=== PATIENT | female | born 1985 | race Two or more races ===

== ENCOUNTER → 2025-04-12 | Outpatient (BNVA) | payer BC, MEDICAID, SELFPAY | END | disposition home or self-care (01) | PROVIDERS: PCP Nurse Practitioner Family; Referring Provider Nurse Practitioner Family; Visit Provider Nurse Practitioner Family | DX: M54.41 Lumbago with sciatica, right side (principal); R03.0 Elevated blood-pressure reading, without diagnosis of hypertension; Z28.21 Immunization not carried out because of patient refusal | CPT/HCPCS: 96372; 99215; J1885 ==

== ENCOUNTER → 2025-04-15 | Outpatient (CLI) | payer BC, MEDICAID, SELFPAY ==
--- NOTE | 2025-04-15 14:29 | XR_ITS ---
EXAMINATION: Lumbar spine 3 views TECHNIQUE: AP lateral: Lateral and lower lumbar spine 3 views Date and time: April 15, 2025, 1445 hours INDICATIONS: Low back pain beginning 2004 FINDINGS: Lumbar levoscoliosis 12 degrees No lumbar fracture or significant lumbar disc narrowing Intact pedicles IMPRESSION: No lumbar fracture or lumbar disc narrowing
== END | disposition home or self-care (01) ==
LOC: CDIM 14:04
PROVIDERS: PCP Nurse Practitioner Family; Referring Provider Nurse Practitioner Family; Visit Provider Nurse Practitioner Family
DX: M54.50 Low back pain, unspecified (principal)
CPT/HCPCS: 72100

== ENCOUNTER → 2025-04-19 | Outpatient (BNVA) | payer BC, MEDICAID, SELFPAY | END | disposition home or self-care (01) | PROVIDERS: PCP Nurse Practitioner Family; Referring Provider Nurse Practitioner Family; Visit Provider Nurse Practitioner Family | DX: Z71.2 Person consulting for explanation of examination or test findings (principal); I10 Essential (primary) hypertension; M54.41 Lumbago with sciatica, right side; M41.87 Other forms of scoliosis, lumbosacral region; Z28.21 Immunization not carried out because of patient refusal | CPT/HCPCS: 99214 ==

== ENCOUNTER → 2025-05-03 | Outpatient (BNVA) | payer BC, MEDICAID, SELFPAY | END | disposition home or self-care (01) | PROVIDERS: PCP Nurse Practitioner Family; Referring Provider Nurse Practitioner Family; Visit Provider Nurse Practitioner Family | DX: I10 Essential (primary) hypertension (principal); Z28.21 Immunization not carried out because of patient refusal | CPT/HCPCS: 99212; 99213 ==

== ENCOUNTER 2025-05-17 03:41 | Emergency (ER) | payer BC, MEDICAID, SELFPAY ==
[2025-05-17 03:42] VITALS: BMI 39.7
[2025-05-17 04:33] VITALS: BP 136/90; PULSE 89; RESP 20; TEMP 37.1; O2SAT 100
--- NOTE | 2025-05-17 05:17 | PD.EDRME ---
Rapid Medical Screening Exam RME Arrival date/time: 05/17/25 03:41 39F with history of HTN presents to ED with worsening R-hip/back pain that radiates down RLE w/o fall/trauma. Chief Complaint: Extremity Problem,Nontraumatic Vital signs: Vital Signs Temperature 98.7 F 05/17/25 04:33 Pulse Rate 89 05/17/25 04:33 Respiratory Rate 20 05/17/25 04:33 Blood Pressure 136/90 H 05/17/25 04:33 Pulse Oximetry (%) 100 05/17/25 04:33 Oxygen Delivery Method Room Air 05/17/25 04:33 Exam: Unremarkable. Gait intact. Clinical Impression: DVT vs sciatica vs gout vs joint pain
--- NOTE | 2025-05-17 05:21 | XR_ITS ---
Examination: Duplex scan of the lower extremity, unilateral right Date and time of exam: May 09, 2025, 0720 hours INDICATION: Right hip and leg pain beginning 2 days ago Technique: Duplex scan of the extremity veins using B-mode/grayscale imaging and Doppler spectral analysis and color flow Attention is directed to internal echogenicity, compression and augmentation involving these veins, color flow assessment, spectral analysis Findings: Major deep venous structures in the extremity demonstrate normal course and caliber. There is no evidence of deep vein thrombosis. Normal color flow and spectral analysis Impression: Negative for DVT..
[2025-05-17] MEDS: DIAZEPAM 5 MG TABLET PO (05:49)
[2025-05-17] MEDS: KETOROLAC INJ 60 MG/2 ML VIAL IM (05:50)
--- NOTE | 2025-05-24 07:07 | PD.EDLOWEX ---
Lower Extremity Injury RME/HPI General Chief Complaint: Extremity Problem,Nontraumatic Stated Complaint: RIGHT HIP PAIN SINCE YESTERDAY Time Seen by Provider: 05/17/25 06:11 Source: patient Arrival date/time: 05/17/25 03:41 39-year-old female with a history of hypertension presents to the emergency room with a chief complaint of right sided hip pain x 2 days Mode of arrival: ambulatory Limitations: no limitations RME / HPI RME / HPI Narrative: 05/17/25 03:41 39F with history of HTN presents to ED with worsening R-hip/back pain that radiates down RLE w/o fall/trauma. Exam: Unremarkable. Gait intact. Impression: DVT vs sciatica vs gout vs joint pain Related Data Previous Rx's ?Medication ?Instructions ?Recorded ibuprofen 800 mg tablet 800 mg PO Q8H #30 tabs 05/17/25 losartan 50 mg tablet 50 mg PO QDAY #90 tabs 05/20/25 Allergies Allergy/AdvReac Type Severity Reaction Status Date / Time No Known Allergies Allergy Verified 05/20/25 14:08 Review of Systems Review of Systems Systems Reviewed: All systems reviewed, normal except as documented Constitutional Constitutional: Reports system reviewed and no additional complaints, except as documented, Denies fatigue, Denies fever(s), Denies headache(s) and Denies weakness Eyes Eyes: Reports system reviewed and no additional complaints, except as documented, Denies blurry vision and Denies change in vision ENT Ears, Nose, Mouth, and Throat: Reports system reviewed and no additional complaints, except as documented, Denies otalgia, Denies headache(s), Denies nasal congestion, Denies throat swelling and Denies vertigo Cardiovascular Cardiovascular: Reports system reviewed and no additional complaints, except as documented, Denies chest pain, Denies dyspnea and Denies dyspnea on exertion Respiratory Respiratory: Reports system reviewed and no additional complaints, except as documented, Denies chest congestion, Denies cough, Denies dyspnea, Denies dyspnea on exertion and Denies wheezing Gastrointestinal Gastrointestinal: Reports system reviewed and no additional complaints, except as documented, Denies abdominal pain, Denies cramping, Denies nausea and Denies vomiting Genitourinary Genitourinary: Reports system reviewed and no additional complaints, except as documented Musculoskeletal Musculoskeletal: Reports system reviewed and no additional complaints, except as documented, Reports arthralgias and Denies back pain Integumentary/Breasts Skin/Breast: Reports system reviewed and no additional complaints, except as documented and Denies wounds Neurologic Neurologic: Reports system reviewed and no additional complaints, except as documented, Denies confusion, Denies headache(s), Denies lack of coordination, Denies vertigo and Denies weakness Psychiatric Psychiatric: Reports system reviewed and no additional complaints, except as documented, Denies anxiety, Denies confusion, Denies depression, Denies paranoia, Denies suicidal ideation and Denies tactile hallucinations Endocrine Endocrine: Reports system reviewed and no additional complaints, except as documented and Denies fatigue Hematologic/Lymphatic Hematologic/Lymphatic: Reports system reviewed and no additional complaints, except as documented and Denies lymphadenopathy Allergic/Immunologic Allergic/Immunologic: Reports system reviewed and no additional complaints, except as documented, Denies throat swelling, Denies urticaria and Denies wheezing Past Medical History Past Medical History NEUROLOGIC: Negative Neurological Disorders or Seizures CARDIAC: Positive Cardiac Disorders and Hypertension (pt chooses not to take med); Negative Congestive Heart Failure RESPIRATORY: Positive Bronchitis; Negative Chronic Obstructive Pulmonary Disease (COPD) or Asthma GASTROINTESTINAL: Positive Gastrointestinal Disorders and Obesity; Negative Hepatitis GENITOURINARY: Negative Genitourinary Disorders or Renal Disease REPRODUCTIVE: Positive Previous Pregnancies MUSCULOSKELETAL: Positive Musculoskeletal Disorders ENDOCRINE: Negative Endocrine Disorders, Diabetes Mellitus Type 1 or Diabetes Mellitus Type 2 HEMATOLOGIC: Positive Blood Disorders and Anemia; Negative Sickle Cell Disease PSYCHO/SOCIAL: Positive Depression (no meds) and Anxiety OTHER HISTORY: Negative Hospitalization, Autoimmune Disease, Shingles, Blood Transfusions, Blood Transfusion Reaction, Anesthesia Reactions or Cancer Family History FAMILY HISTORY: Positive Family Cardiac Disorders, Family Cancer and Family Surgery; Negative Family Psychiatric Problems, Family Respiratory Disorders, Family Gastrointestinal Problems or Family Anesthesia Reaction Social History SMOKING STATUS: Never smoker ED Exam General Limitations: Present no limitations General appearance: Present alert and in no apparent distress Head Head exam: Present atraumatic Eye Eye exam: Present normal appearance, PERRL and EOMI ENT ENT exam: Present normal exam, normal oropharynx and mucous membranes moist Neck Neck exam: Present normal inspection, full ROM and trachea midline Chest Chest inspection: Present normal inspection and symmetric chest wall rise Respiratory Respiratory exam: Present normal lung sounds bilaterally Cardiovascular Cardiovascular exam: Present regular rate, normal rhythm and normal heart sounds Abdominal Exam Abdominal exam: Present soft and normal bowel sounds Extremities Exam Extremities exam: Present normal inspection and full ROM Expanded Lower Extremity Exam Hip/Pelvis exam: Present full ROM, tenderness and swelling; Absent erythema Upper leg exam: Present full ROM, tenderness and swelling Knee exam: Present normal inspection Lower leg exam: Present normal inspection Ankle exam: Present normal inspection Foot/toe exam: Present normal inspection Gait: observed and normal Back Exam Back exam: Present normal inspection, full ROM and sciatic notch tenderness (R) Neurological Exam Neurological exam: Present alert, oriented X3 and CN II-XII intact Psychiatric Psychiatric exam: Present normal affect and normal mood Skin Skin exam: Present warm, dry, intact and normal color Course Quality Measures none Orders Category Date Time Status US venous doppler LE RT Stat Exams 05/17/25 05:21 Completed Diazepam [Valium] Med 05/17/25 05:19 Discontinued 5 mg PO X1 ONE Ketorolac Inj [Toradol Inj] Med 05/17/25 05:19 Discontinued 60 mg IM X1 ONE Vital Signs Vital signs: Vital Signs Temperature 98.7 F 05/17/25 04:33 Pulse Rate 89 05/17/25 04:33 Respiratory Rate 20 05/17/25 04:33 Blood Pressure 136/90 H 05/17/25 04:33 Pulse Oximetry (%) 100 05/17/25 04:33 Oxygen Delivery Method Room Air 05/17/25 04:33 Extremity Injury, Lower MDM Narrative MDM Narrative:: 39-year-old female with a history of hypertension presents to the emergency room with a chief complaint of right sided hip pain x 2 days Patient is hemodynamically stable and in no apparent distress. Patient is afebrile nontachycardic nontachypneic Physical examination shows tenderness to the right sciatic notch. The patient also has tenderness to her thigh and states it is more swollen than her left eye. There is tenderness with palpation as well An ultrasound Doppler was completed and was negative for DVT. The patient states she has had x-rays of her lumbar spine which were all negative as well. The patient denies any saddle anesthesia, loss of bowel or bladder function, or any numbness to the lower extremities. The patient has a normal steady gait. Patient was discharged and educated to follow-up with primary care provider in the next 24 to 48 hours and return to the emergency room for any evidence of worsening signs or symptoms Patient data External records reviewed:: [facility] previous records Clinical information provided by:: patient Social determinants that could affect healthcare access:: none Patient has the following chronic illnesses:: No chronic illness How is presenting disease/condition affected by chronic disease/condition?: no chronic disease Evaluation data The following diagnostics were reviewed and interpreted by me:: lab results and radiology exam(s) Lab and/or radiology exams considered but not ordered:: Labs and radiology exams considered and ordered Interpretation Summary: Ultrasound Doppler-Findings: Major deep venous structures in the extremity demonstrate normal course and caliber. There is no evidence of deep vein thrombosis. Normal color flow and spectral analysis Impression: Negative for DVT.. Medications / Prescriptions Medications or Prescriptions considered but not ordered:: Medication given Medication administrations:: Medication Administration History Discontinued Medications Diazepam (Diazepam 5 Mg Tablet) 5 mg PO X1 ONE Stop: 05/17/25 05:20 Last Admin: 05/17/25 05:49 Dose: 5 mg Documented By: KARMEN Ketorolac Tromethamine (Ketorolac Inj 60 Mg/2 Ml Vial) 60 mg IM X1 ONE Stop: 05/17/25 05:20 Last Admin: 05/17/25 05:50 Dose: 60 mg Documented By: KARMEN Medication given Consultations Consultation(s) initiated? (list below): No Diagnosis Extremity Injury, Lower Differential Diagnosis: other (Sciatica/DVT) Most likely diagnosis given after review of the tests above:: Sciatica Admission Indicated Admission indicated?: not indicated Admission Request Was there a request for admission?: No Disposition Plan Disposition Plan: Discharge Discharge Attestation Discharge Attestation: The patient and all family members were given an opportunity to ask questions and understood the discharge instructions. Discharge instructions specifically effects, indications for sooner follow up or return to the emergency department, and the expected course of current diagnosis. Patient condition: Stable Discharge Plan Plan Patient Disposition: HOME (Self Care) Discharge Disposition comment: Stable Prescriptions/Referrals Prescriptions/Med Rec: New ibuprofen 800 mg tablet 800 mg PO Q8H Qty: 30 0RF No Action losartan 50 mg tablet 50 mg PO QDAY Qty: 90 0RF Referrals: No Primary/Family,Physician [Primary Care Provider] - In 1 week Problem List Clinical Impression: Sciatica Patient/Caregiver Discharge Instructions Education Materials: ED Sciatica Additional Instructions: Please follow-up with your primary care provider in the next 24 to 48 hours Ultrasound was completed and was negative for any blood clots For any evidence of worsening signs or symptoms return to emergency room immediately Print Language: Italian Stand Alone Forms: Nhi Award Info., Work/School Release, Patient Portal Info Letter PA/[employer] OPERATOR Supervising Physician PA/G[employer]INE [employer] OPERATOR Supervising Physician: Dr. Sanchez
== END 2025-05-17 08:18 | disposition home or self-care (01) ==
PROVIDERS: Emergency Provider Nurse Practitioner Family
DX: M54.31 Sciatica, right side (principal)
CPT/HCPCS: 93971; 96372; 99283; J1885; A9270

== ENCOUNTER → 2025-05-20 | Outpatient (BNVA) | payer BC, MEDICAID, SELFPAY | END | disposition home or self-care (01) | PROVIDERS: PCP Nurse Practitioner Family; Referring Provider Nurse Practitioner Family; Visit Provider Nurse Practitioner Family | DX: I10 Essential (primary) hypertension (principal); M41.87 Other forms of scoliosis, lumbosacral region | CPT/HCPCS: 99213 ==

== ENCOUNTER → 2025-06-03 | Outpatient (CLI) | payer OTHER, SELFPAY ==
--- NOTE | 2025-06-03 12:53 | XR_ITS ---
Examination: Right hip AP, lateral, AP pelvis 3 views Technique: Hip AP lateral, AP pelvis, 3 views Exam date and time: June 03, 2025, 1316 hours INDICATIONS: Patient fell number 06/2024 with injury of the right hip. FINDINGS: No right hip fracture or dislocation Left hip bones of the pelvis intact IMPRESSION: No right hip fracture or dislocation.
== END | disposition home or self-care (01) ==
PROVIDERS: PCP Nurse Practitioner Family; Referring Provider Family Medicine; Visit Provider Family Medicine
DX: S70.01XA Contusion of right hip, initial encounter (principal); W19.XXXA Unspecified fall, initial encounter
CPT/HCPCS: 73502

== ENCOUNTER → 2025-06-04 | Outpatient (BNVA) | payer BC, MEDICAID, SELFPAY | END | disposition home or self-care (01) | PROVIDERS: PCP Nurse Practitioner Family; Referring Provider Nurse Practitioner Family; Visit Provider Nurse Practitioner Family | DX: Z00.01 Encounter for general adult medical examination with abnormal findings (principal); F41.9 Anxiety disorder, unspecified; F32.1 Major depressive disorder, single episode, moderate; E66.812 Obesity, class 2; Z68.39 Body mass index [BMI] 39.0-39.9, adult; I10 Essential (primary) hypertension; Z13.29 Encounter for screening for other suspected endocrine disorder; Z13.89 Encounter for screening for other disorder; Z11.3 Encounter for screening for infections with a predominantly sexual mode of transmission; Z13.1 Encounter for screening for diabetes mellitus; Z13.220 Encounter for screening for lipoid disorders; Z28.21 Immunization not carried out because of patient refusal; M54.50 Low back pain, unspecified; M41.9 Scoliosis, unspecified | CPT/HCPCS: 99173; 99215 ==

== ENCOUNTER → 2025-06-11 | Outpatient (BNVA) | payer BC, MEDICAID, SELFPAY | END | disposition home or self-care (01) | PROVIDERS: PCP Nurse Practitioner Family; Referring Provider Nurse Practitioner Family; Visit Provider Nurse Practitioner Family | DX: Z71.2 Person consulting for explanation of examination or test findings (principal); R68.89 Other general symptoms and signs; E55.9 Vitamin D deficiency, unspecified; R73.03 Prediabetes; R80.9 Proteinuria, unspecified | CPT/HCPCS: 99212; G0463 ==

== ENCOUNTER → 2025-06-14 | Outpatient (BNVA) | payer BC, MEDICAID, SELFPAY | END | disposition home or self-care (01) | PROVIDERS: PCP Nurse Practitioner Family; Referring Provider Nurse Practitioner Family; Visit Provider Nurse Practitioner Family | DX: Z00.00 Encounter for general adult medical examination without abnormal findings (principal) ==